=== PATIENT | female | born 1975 | race Caucasian/White ===

== ENCOUNTER 2021-06-08 11:59 | Emergency (ER) | payer OTHER ==
[~2021-06-08] VITALS: Ht 160 cm; Wt 53.1 kg
[2021-06-08 12:12] VITALS: BP_SYST 129
--- NOTE | 2021-06-08 12:16 | NUR ---
Patient to ER bed 4 to gown for evaluation. Side rails up. Report given to TIANA LAWLER.
--- NOTE | 2021-06-08 12:17 | NUR ---
PT ARRIVES WITH EMS #20G TO [facility]
--- NOTE | 2021-06-08 12:20 | NUR ---
PT BIBA FROM WORK AFTER REPORTING A SYNCOPLE EPISODE AT WORK DUE TO SEVERE ABD PAIN. PT DENIES KO, ARRIVES AAOX4, V/S STABLE, RELAXED IN NO APPARANT DISTRESS
--- NOTE | 2021-06-08 12:22 | NUR ---
ER DR. MENCHACA AT THE BEDSIDE EXAMINING PT
--- NOTE | 2021-06-08 12:44 | NUR ---
LAB AT THE BEDSIDE FOR BLOOD DRAW
[2021-06-08 12:55] LABS: BASOPHILS % (AUTO) 0.9 % (0.0-2.0); EOSINOPHILS # (AUTO) 0.2 K/uL (0.0-0.4); EOSINOPHILS % (AUTO) 4.6 % (0.0-4.0); HEMATOCRIT 35.3 % (36-48); HEMOGLOBIN 12.1 g/dL (12.0-16.0); MEAN CORPUSCULAR HEMOGLOBIN 32 pg (27-31); MEAN CORPUSCULAR HGB CONC 34 % (32-36); MEAN CORPUSCULAR VOLUME 92 fL (79.0-98.0); MONOCYTES # (AUTO) 0.3 K/uL (0.0-1.0); MONOCYTES % (AUTO) 8.6 % (1.7-9.3); NEUTROPHILS # (AUTO) 2.3 K/uL (1.8-7.7); NEUTROPHILS % (AUTO) 60.9 % (40.0-70.0); PLATELET COUNT (AUTO) 237 K/uL (130-430); RED BLOOD CELL COUNT(AUTO) 3.83 MIL/uL (4.2-6.2); RED CELL DISTRIBUTION WIDTH 13.1 % (9.0-15.0); WHITE BLOOD COUNT (AUTO) 3.8 K/uL (4.8-10.8)
[2021-06-08 13:09] LABS: CALCIUM 8.6 mg/dL (8.4-11.0); CREATININE 0.64 mg/dL (0.55-1.30); POTASSIUM 3.9 mmol/L (3.5-5.1)
--- NOTE | 2021-06-08 13:10 | NUR ---
PT ABLE TO AMBULATE TO BATHROOM WITH STEADY GAIT
[2021-06-08 13:14] LABS: ALBUMIN 3.5 g/dL (3.4-4.8); PROTHROMBIN TIME 10.1 SECS (9.5-12.5); TOTAL BILIRUBIN 0.3 mg/dL (0.0-1.0)
--- NOTE | 2021-06-08 13:35 | NUR ---
Patient transported to radiology via WC, accompanied by STAFF.
--- NOTE | 2021-06-08 16:12 | NUR ---
LAB AT THE BEDSIDE FOR BLOOD DRAW
--- NOTE | 2021-06-08 17:10 | NUR ---
ULTRASOUND AT THE BEDSIDE
[2021-06-08 18:00] VITALS: BP_SYST 99
== END 2021-06-08 18:01 | disposition home or self-care (01) ==
LOC: SED 11:59
DX: R55 Syncope and collapse (principal); R10.13 Epigastric pain; Z88.6 Allergy status to analgesic agent
CPT/HCPCS: 36415; 70450-TC; 71045; 76376; 76700-TC; 80053; 81025; 83605; 84484; 84703; 85025; 85610-TC; 85730-TC; 93005; 99285